=== PATIENT | male | born 1935 | race Caucasian/White ===

== ENCOUNTER 2019-05-10 22:34 | Inpatient (IN) | payer MEDICARE, OTHER ==
[2019-05-10] MEDS ORDERED: Ketamine 50 MG/ML (10ML VIAL) ONE (22:42)
[2019-05-10] MEDS ORDERED: Fentanyl 100 MCG/2 ML VIAL ONE (22:42)
[2019-05-10] MEDS ORDERED: Rocuronium Bromide 10 MG/ML (10ML VIAL) ONE (22:42)
[2019-05-10 23:03] LABS: Hemoglobin 13.4 g/dL (14.0-18.0); Mean Corpuscular HGB CONC 30.8 g/dL (32.0-36.0); Mean Corpuscular Hemoglobin 29.7 pg (27.0-31.0); Mean Corpuscular Volume 96.4 fL (78.0-98.0); Mean Platelet Volume 8.7 fL (7.4-10.4); Platelet Count 333 thou/uL (130-400); RBC Distribution Width 16.2 % (11.5-14.5); Red Blood Cell (RBC) Count 4.53 mill/uL (4.70-6.10); White Blood Cell (WBC) Count 14.8 thou/uL (4.8-10.8)
[2019-05-10] MEDS ORDERED: Norepinephrine 8 MG/0.9% NS 250 ML ONE (23:06)
--- NOTE | 2019-05-10 23:19 | RAD ---
RADIOGRAPH CHEST 1 VIEW: DATE: 05/10/2019 TIME: 11:02 PM HISTORY: 83-year-old male with respiratory distress COMPARISON: 11/04/2010 FINDINGS: There is a new finding of severe alveolar infiltrates throughout the bilateral mid and lower lung zon es. Lung apices are relatively spared. New endotracheal tube distal tip at mid thoracic trachea. New right-sided PICC. Again noted is the left subclavian pacemaker. Spinal cord dorsal column stimula tor leads at lower T-spine. IMPRESSION: Severe bilateral alveolar infiltrates, probably representing severe bilateral pneumonia, less likely to represent pulmonary edema
[2019-05-10 23:21] LABS: Bilirubin Negative (Negative); Blood, Urine Trace (Negative); Clarity Clear (Clear); Glucose, Urine (Dipstick) Normal (Negative); Leukocyte Negative Leu/uL (Negative); Nitrite Negative (Negative); Protein, Urine (Dipstick) 200 mg/dL (Neg-Trace); Squamous Epithelial None Seen HPF (0-3); Urobilinogen Normal mg/dL (Less than 2)
[2019-05-10 23:22] LABS: Bacteria/HPF Rare-Few HPF (None Seen)
[2019-05-10] MEDS ORDERED: fentaNYL Citrate/PF 2,000 MCG in Sodium Chloride 0.9% 60 ML IV SCH (23:24)
[2019-05-10 23:27] LABS: ALT (SGPT) 7 U/L (8-55); AST (SGOT) 21 U/L (5-34); Alkaline Phosphatase 194 U/L (40-110); Anion Gap 22 mmol/L (10-20); BUN (Urea Nitrogen) 8 mg/dL (8.4-25.7); Bilirubin, Total 0.8 mg/dL (0.2-1.2); CK (CPK) 42 U/L (30-200); Calc. Creatinine Clearance 0 mL/min (70-130); Calcium 9.3 mg/dL (7.8-10.44); Carbon Dioxide 19 mmol/L (23-31); Chloride 107 mmol/L (98-107); Estimated GFR-MDRD 90; Globulin 4.1 g/dL (2.4-3.5); Glucose 119 mg/dL (83-110); Potassium 3.6 mmol/L (3.5-5.1); Protein, Total 7.1 g/dL (5.8-8.1); Sodium 144 mmol/L (136-145)
[2019-05-10 23:37] LABS: Band 16 % (5-11); Lymphocytes 14 % (21-51); MDiff Complete? YES; Neutrophil 70 % (42-75)
[2019-05-11] MEDS ORDERED: Aztreonam 2 GM in Sodium Chloride 0.9% 100 ML IVPB SCH (00:15)
[2019-05-11] MEDS ORDERED: Cefepime 2 GM VIAL ONE (00:20)
[2019-05-11] MEDS ORDERED: Norepinephrine 8 MG/0.9% NS 250 ML IVPB PRN (00:25)
[2019-05-11] MEDS ORDERED: CCU Electrolyte Replacement 1 EACH IVPB ONE (00:25)
[2019-05-11] MEDS ORDERED: Acetaminophen 325 MG Suppository PR PRN (00:25)
[2019-05-11] MEDS ORDERED: Acetaminophen 650 MG Suppository ONE (00:30)
[2019-05-11] MEDS ORDERED: Ventilator Sedation Protocol 1 EACH FS SCH (00:30)
[2019-05-11] MEDS ORDERED: Fentanyl BOLUS 250 ML IVPB PRN (00:31)
[2019-05-11] MEDS ORDERED: DISCONTINUE PREVIOUS NARCOTIC PAIN MEDICATIONS AND BENZODIAZEPINES FS SCH (00:31)
[2019-05-11] MEDS ORDERED: Morphine 2 MG/ML SYRINGE SLOW IVP PRN (00:31)
[2019-05-11] MEDS ORDERED: Propofol BOLUS 1,000 MG/100 ML VIAL IV PRN (00:31)
[2019-05-11] MEDS ORDERED: Propofol 1,000 MG/100 ML VIAL IV PRN (00:31)
[2019-05-11] MEDS ORDERED: Magnesium 2 GM/50 ML 2 GM in Premix Bag 1 BAG IVPB PRN (00:34)
[2019-05-11] MEDS ORDERED: Potassium Chloride 40 MEQ in Sodium Chloride 0.9% 250 ML 250 ML IVPB PRN (00:34)
[2019-05-11] MEDS ORDERED: Potassium Phosphate 15 MMOL in Sodium Chloride 0.9% 250 ML 250 ML IV PRN (00:34)
[2019-05-11] MEDS ORDERED: Magnesium Oxide 400 MG TAB PO PRN ×2 (00:34)
[2019-05-11] MEDS ORDERED: Potassium Chloride 20 MEQ TAB PO PRN (00:34)
[2019-05-11] MEDS ORDERED: PHOS-NAK 1 PKT PACK PO PRN ×2 (00:34)
[2019-05-11] MEDS ORDERED: Potassium Phosphate 12 MMOL in Sodium Chloride 0.9% 250 ML 250 ML IV PRN (00:34)
[2019-05-11] MEDS ORDERED: Potassium Chloride 40 MEQ in Premix Bag 1 BAG IVPB PRN (00:34)
[2019-05-11] MEDS ORDERED: CCU ELECTROLYTE REPLACEMENT PROTOCOL FS PRN (00:34)
[2019-05-11] MEDS ORDERED: Potassium Phosphate 9 MMOL in Sodium Chloride 0.9% 100 ML IVPB PRN (00:34)
[2019-05-11] MEDS ORDERED: Azithromycin 500 MG in Sodium Chloride 0.9% 250 ML 250 ML IVPB SCH (01:00)
--- NOTE | 2019-05-11 01:28 | HP ---
CHIEF COMPLAINT: Shortness of breath. HISTORY OF PRESENT ILLNESS: Mr. Sheridan is an 83-year-old male with unconfirmed past medical history of atrial fibrillation, cardiac pacemaker, Enterococcus infection, hypertension, was brought from a nursing facility to the emergency room with shortness of breath. The patient was hypoxic as per ER physician, need to be intubated. According to the ER physician, the patient initially had frothy secretions coming from the ET tube. After intubation, the patient's blood pressure dropped. Laboratory work, the patient has an elevated WBC count of 14.8. BNP is elevated at 339. Troponin is 0.02. Chest x-ray showed severe bilateral alveolar infiltrates. Differential diagnosis includes bilateral pneumonia and also possibly pulmonary edema. Lactic acid is elevated at 5.4. Because of the presentation, chest x-ray findings, elevated WBC count, elevated lactic acid, sepsis alert, and the patient had septic workup including cultures, viral panel, and COVID testing done. Currently, the patient is intubated and sedated. The patient is being admitted to the intensive care unit for further management. PAST MEDICAL HISTORY: Unconfirmed; 1. Cardiac pacemaker. 2. Atrial fibrillation. 3. Enterococcus infection. 4. Hypertension. PAST SURGICAL HISTORY: Unknown at this time. FAMILY HISTORY: Unknown at this time. The patient is intubated and sedated. ALLERGIES: CIPRO, DIVALPROEX, LEVOFLOXACIN, NORTRIPTYLINE, PENICILLIN, SULFA, TAMSULOSIN, TETRACYCLINE, VANCOMYCIN, AND VALPROIC ACID. REVIEW OF SYSTEMS: Unable to obtain. The patient is currently intubated and sedated. PHYSICAL EXAMINATION: GENERAL: The patient is intubated, sedated. VITAL SIGNS: Blood pressure is 126/46, pulse is 60, respiratory rate is 20, oxygen saturation is 94%. The patient was started on Levophed because of low blood pressure. HEAD AND NECK: Normocephalic and atraumatic. NECK: Supple. CHEST: Coarse bilateral breath sounds. HEART: Distant heart sounds. ABDOMEN: Soft. Bowel sounds present. NEUROLOGIC: Intubated and sedated, unable to assess. PSYCH: Unable to assess. EXTREMITIES: No clubbing, no cyanosis. LABORATORY DATA: As mentioned above in the history of present illness. ASSESSMENT: 1. Acute respiratory failure, hypoxic. 2. Sepsis/septic shock. 3. Pneumonia? 4. Suspected COVID infection. 5. Pulmonary edema, also in the differential diagnosis given presentation with frothy secretions during intubation. 6. Cardiac pacemaker. 7. History of atrial fibrillation. PLAN: 1. Admit to intensive care unit. 2. Continue full ventilator support. 3. Keep n.p.o. 4. The patient was started on Levophed for low blood pressure. We will continue for now. 5. Continue with empiric IV antibiotics for now. 6. Consult Pulmonary/washing machine mechanic for critical care management and ventilator management. 7. We will need cardiac workup including serial cardiac enzymes, troponin, and 2D echo. 8. Reconcile home medications. 9. DVT prophylaxis as appropriate. 10. Expected length of stay, 2 midnights or more. Job ID: [id number]
[2019-05-11 02:02] LABS: Lactic Acid 2.8 mmol/L (0.5-2.2)
[2019-05-11 02:09] LABS: Troponin I 0.054 ng/mL (< 0.028)
[2019-05-11] MEDS ORDERED: FLU VACC TS2019-20(65YR UP)/PF 180 MCG/0.5 ML SYRINGE IM ONE ×2 (03:00→09:00)
[2019-05-11 07:51] LABS: Base Excess (BEa) -1.9 mEq/L (-2.0 to +3.0); CO2 Tension 39.7 mmHg (35.0-45.0); Calcium, Ionized 1.22 mmol/L (1.12-1.30); Carboxyhemoglobin (COHb) 0.7 gm% (0.0-3.0); Hemoglobin (Hb) 12.6 g/dL (14.0-18.0); O2 Tension (PaO2), arterial 69.1 mmHg (> 60.0); Potassium - ABG Lab 3.33 mmol/L (3.70-5.30); pH, Arterial 7.38 (7.35-7.45)
[2019-05-11 07:54] LABS: ALV-art Gradient 594.275 (0-20); Puncture Site RBA
[2019-05-11] MEDS: Famotidine/PF 20 mg/2ml Vial SLOW IVP SCH ×2 (08:20→21:52)
[2019-05-11 10:19] LABS: Hemoglobin 11.9 g/dL (14.0-18.0); Mean Corpuscular HGB CONC 30.9 g/dL (32.0-36.0); Mean Corpuscular Hemoglobin 29.5 pg (27.0-31.0); Mean Corpuscular Volume 95.4 fL (78.0-98.0); Mean Platelet Volume 8.6 fL (7.4-10.4); Platelet Count 265 thou/uL (130-400); RBC Distribution Width 16.2 % (11.5-14.5); Red Blood Cell (RBC) Count 4.04 mill/uL (4.70-6.10); White Blood Cell (WBC) Count 18.3 thou/uL (4.8-10.8)
[2019-05-11 10:33] LABS: Lactic Acid 2.6 mmol/L (0.5-2.2)
[2019-05-11 10:38] LABS: ALT (SGPT) Less than 7 U/L (8-55); AST (SGOT) 20 U/L (5-34); Albumin 2.5 g/dL (3.4-4.8); Alkaline Phosphatase 154 U/L (40-110); Anion Gap 17 mmol/L (10-20); BUN (Urea Nitrogen) 12 mg/dL (8.4-25.7); Bilirubin, Total 0.9 mg/dL (0.2-1.2); Calc. Creatinine Clearance 80 mL/min (70-130); Calcium 8.6 mg/dL (7.8-10.44); Carbon Dioxide 20 mmol/L (23-31); Chloride 110 mmol/L (98-107); Estimated GFR-MDRD 71; Globulin 3.4 g/dL (2.4-3.5); Glucose 81 mg/dL (83-110); Potassium 3.4 mmol/L (3.5-5.1); Protein, Total 5.9 g/dL (5.8-8.1); Sodium 144 mmol/L (136-145)
[2019-05-11 11:01] LABS: Band 52 % (5-11); Burr Cells SLIGHT = 2-5 cells (100X) (0-1/hpf); CKMB 2.7 ng/mL (0-6.6); Eosinophils 1 % (0-10); Lymphocytes 6 % (21-51); MDiff Complete? YES; Metamyelocyte 1 % (0-0); Monocytes 3 % (0-10); Neutrophil 37 % (42-75); Platelet Morphology Comment Appears Adequate; Polychromasia SLIGHT = 2-3 cells (100X) (0-2/hpf)
[2019-05-11] MEDS ORDERED: Cefepime 2 GM in Sodium Chloride 0.9% 100 ML IVPB SCH ×2 (12:00→21:00)
[2019-05-11] MEDS: Lorazepam 2 MG/ML VIAL SLOW IVP PRN ×4 (12:52→18:11)
[2019-05-11] MEDS ORDERED: Potassium Chloride 20 MEQ TAB PO SCH (13:15)
--- NOTE | 2019-05-11 13:15 | PDOC.EVN ---
Event Note - Event Note Event Note: Patient admitted for bilateral pneumonia. Rule out COVID. Per Dr. Ward, unclear whether patietn supposed to be full code, may be DNR. He spoke to family, they will keep him intubated for now, consider extubation tomorrow. Patient has had chronic pain for years which has been difficult to manage. Has melanoma, discitis, septic emboli, aortic valve vegetation. No history of IV drug use. Im unable to go in since no N95 masks available. Vitals: stable Gen: patient intubated, currently in no distress. He is sedated CV: sinus rhythm Per nurse, patient has bilateral crackles - He does have some LE edema on exam This is an 83 year old male who presented with shortness of breath requiring intubation #ARDS - per pulmonary #History of septic emboli #History of discitis #History of aortic valve vegetation - on cefepime, azithromycin. Patient has allergy to vanc. LInezolid and levaquin drug interaction with current meds - will place ID consult due to history of endocarditis - ECHO - COVID testing pending - continue ventilator support Lactic acidosis - continue pressor support - avoiding fluids due to ARDS Hypokalemia - potassium 3.4, replaced
--- NOTE | 2019-05-11 13:26 | CON ---
DATE OF CONSULTATION: 05/11/2019 HISTORY OF PRESENT ILLNESS: Mr. Sheridan is an 83-year-old male. I talked with his physician, Dr. Ordaz. He has chronic pain. Apparently, he has been hypersomnolent at home for several days and they have been adjusting pain medications trying to lead to an improvement in his mental status. He is a do not resuscitate patient. It is pre-existing per my discussion with her, the daughter, Autumn, is [id number] with [facility]. The is [id number], but the has fairly advanced dementia apparently. Mr. Sheridan presented with respiratory distress and was subsequently intubated. He has diffuse infiltrates on chest radiograph. PAST MEDICAL HISTORY: Remarkable for: 1. Pacemaker with a right ventricular lead placed recently. 2. History of claudication. 3. History of coronary artery disease. 4. History of aortic valve vegetation, septic emboli 2 weeks ago to his right upper lobe, and what is felt to be a diskitis and possible epidural abscess, being treated with outpatient IV antibiotics. 5. History of melanoma. 6. History of immune-mediated polyneuropathy, receiving IVIG. This was recently discontinued. 7. History of cardiomyopathy with an ejection fraction of 40%. 8. History of cognitive impairment. All this history is obtained from his primary physician, Dr. Ordaz. ALLERGIES: REPORTED TO DIVALPROEX, CIPRO, LEVAQUIN, NORTRIPTYLINE, PENICILLIN, SULFA, HYTRIN, TETRACYCLINE, VANCOMYCIN, AND VALPROATE. REVIEW OF SYSTEMS: Not obtainable. PHYSICAL EXAMINATION: GENERAL: He is intubated. He is in no distress. VITAL SIGNS: He is afebrile. Respiratory rates in the 20s, oximetry is 100%, heart rate 60, blood pressure 134/42. LUNGS: Remarkable for distant breath sounds. HEART: Regular rhythm. ABDOMEN: Soft. EXTREMITIES: With reported edema. LABORATORY AND DIAGNOSTIC DATA: White count 18.3, hemoglobin 11.9, and platelets 265. Sodium 144, potassium 3.4, chloride 110, bicarb 20, BUN 12, creatinine 1.0 , and glucose 81. PH 7.38, CO2 of 39, pO2 of 69. Chest x-ray shows diffuse infiltrates. IMPRESSION: Chemical pneumonitis, acute respiratory distress syndrome, most likely secondary to aspiration. COVID will be ruled out. We will follow along with other physicians caring for Mr. Sheridan. CRITICAL CARE TIME: 30 minutes. Job ID: [id number] MTDD
[2019-05-12 05:31] LABS: ALT (SGPT) 7 U/L (8-55); AST (SGOT) 23 U/L (5-34); Albumin 2.2 g/dL (3.4-4.8); Alkaline Phosphatase 148 U/L (40-110); Anion Gap 17 mmol/L (10-20); BUN (Urea Nitrogen) 19 mg/dL (8.4-25.7); Bilirubin, Total 0.8 mg/dL (0.2-1.2); Calc. Creatinine Clearance 47 mL/min (70-130); Calcium 8.6 mg/dL (7.8-10.44); Carbon Dioxide 20 mmol/L (23-31); Chloride 112 mmol/L (98-107); Estimated GFR-MDRD 39; Globulin 3.2 g/dL (2.4-3.5); Glucose 96 mg/dL (83-110); Potassium 4.3 mmol/L (3.5-5.1); Protein, Total 5.4 g/dL (5.8-8.1); Sodium 145 mmol/L (136-145)
[2019-05-12 05:51] LABS: Band 41 % (5-11); Hemoglobin 10.2 g/dL (14.0-18.0); Lymphocytes 3 % (21-51); MDiff Complete? YES; Mean Corpuscular Hemoglobin 30.6 pg (27.0-31.0); Mean Corpuscular Volume 95.8 fL (78.0-98.0); Mean Platelet Volume 9.7 fL (7.4-10.4); Monocytes 4 % (0-10); Neutrophil 52 % (42-75); Platelet Count 212 thou/uL (130-400); RBC Distribution Width 16.9 % (11.5-14.5); Red Blood Cell (RBC) Count 3.34 mill/uL (4.70-6.10)
[2019-05-12] MEDS ORDERED: Morphine 2 MG/ML SYRINGE SLOW IVP PRN (07:48)
[2019-05-12] MEDS ORDERED: Morphine 4 MG/ML VIAL IV PRN (07:52)
--- NOTE | 2019-05-12 07:56 | PRG ---
DATE OF SERVICE: 05/12/2019 SUBJECTIVE: Mr. Sheridan's COVID status was proven to be negative. I had a long discussion with his daughter. They have come to petroleum inspector with the fact that this is likely a terminal event. He has just spent almost a month in the hospital in [place] and had not recovered from that and was still receiving IV antibiotics for paraspinous abscess and probable endocarditis. OBJECTIVE: VITAL SIGNS: Currently, his blood pressure 94/37, heart rate 60, and respiratory rate is 20. LUNGS: Clear anteriorly. Copious secretions have been suctioned out of him. HEART: Regular rhythm. ABDOMEN: Soft. EXTREMITIES: Still with edema. LABORATORY DATA: White count 16, hemoglobin 10.2, and platelets 212,000. Sodium 145, potassium 4.3, chloride 112, bicarb 20, BUN 19, and creatinine 1.7 up from 1.0. IMPRESSION: Aspiration pneumonia with acute respiratory distress syndrome. PLAN: Withdrawal support. Comfort care per family's request. Critical care time 35 min. Job ID: [id number] MTDD
--- NOTE | 2019-05-12 08:03 | RAD ---
CHEST 1 VIEW: INDICATION: History of CCU examination on ventilator. COMPARISON: Prior exam dated 05/10/2019. FINDINGS: Moderate cardiomegaly with pulmonary vascular congestion persists. Bilateral airspace disease appear s slightly worsened. Small bilateral pleural effusions persist. Multilead AICD, dorsal column stimu lator, ET tube, gastric catheter, and right-sided PICC line are stable-appearing. No pneumothorax is evident. IMPRESSION: 1. Worsening bilateral airspace disease may reflect worsening edema or pneumonia. 2. Cardiomegaly, pulmonary vascular congestion, and pleural effusions persist. The degree of size o f the pleural effusions is slightly more pronounced than on the prior exam. 3. Tubes and lines are stable. 4. No pneumothorax. POS: BH
[2019-05-12] MEDS ORDERED: Azithromycin 500 MG in Sodium Chloride 0.9% 250 ML 250 ML IVPB SCH (09:00)
--- NOTE | 2019-05-12 12:41 | PDOC.HOSPP ---
- Subjective Encounter Date: 05/12/19 Encounter Time: 11:00 Subjective: Paper Reclaiming Machine Operator spoke to family, patient terminally extubated today. Appears tachypneic - Objective Vital Signs & Weight: Vital Signs (12 hours) Temp Pulse Resp BP Pulse Ox 05/12/19 12:00 97.9 F 88 L 05/12/19 10:26 60 91/36 L 05/12/19 10:00 21 H 05/12/19 08:00 20 05/12/19 07:54 62 93/36 L 05/12/19 07:28 100 05/12/19 06:00 20 05/12/19 04:00 97.6 F 20 05/12/19 02:58 64 05/12/19 02:00 20 05/12/19 00:44 65 Weight Admit Weight 221 lb 12.56 oz Weight 223 lb 12.307 oz Most Recent Monitor Data Heart Rate from ECG 62 NIBP 105/42 NIBP BP-Mean 63 Respiration from ECG 18 SpO2 87 I&O: 05/11/19 05/12/19 05/13/19 06:59 06:59 06:59 Intake Total 435.7 316 68 Output Total 140 150 15 Balance 295.7 166 53 Result Diagrams: 05/12/19 03:50 05/12/19 03:50 Hospitalist ROS - Medication Medications: Active Medications Generic Name Dose Route Start Last Admin Trade Name Freq PRN Reason Stop Dose Admin Potassium Chloride 40 meq 05/11/19 00:34 05/11/19 13:26 Klor-Con PER TUBE 40 meq ASDIR PRN Administration FOR SERUM K+ 2.5-3.5 - Exam General - other findings: not responsive, tachypneic Eye: anicteric sclera ENT: normocephalic atraumatic, no oropharyngeal lesions Neck: no JVD Heart: RRR, no murmur, no gallops, no rubs Respiratory - other findings: bilateral rhonchi and rales Gastrointestinal: soft, non-tender, non-distended Extremities: 2+ LE edema Skin: normal turgor, no lesions, no rashes Neurological - other findings: not responsive Hosp A/P - Plan Chest Xray 05/11: cardiomegaly This is an 83 year old male who presented with shortness of breath requiring intubation #ARDS - per pulmonary #History of septic emboli #History of discitis #History of aortic valve vegetation #Acute hypoxic respiratory failure secondary to pulmonary edema and pneumonia - Type II NSTEMI - on cefepime, azithromycin. Patient has allergy to vanc. LInezolid and levaquin drug interaction with current meds. WBC downtrending to 16 -COVID testing negative -troponin peaked at 0.6, ECHO ordered -terminally extubated. CXR shows cardiomegaly and edema. When off pressors, can administer IV lasix JAHAIRA - creatinine up to 1.7 - will administer one dose lasix Lactic acidosis - downtrending Anemia - Hb 10.2, stable will monitor Hypokalemia - potassium 3.4, replaced
[2019-05-12] MEDS ORDERED: Furosemide 20 MG/2 ML VIAL SLOW IVP SCH (12:45)
[2019-05-13 11:24] LABS: Mean Corpuscular HGB CONC 31.1 g/dL (32.0-36.0); Mean Corpuscular Hemoglobin 29.9 pg (27.0-31.0); Mean Corpuscular Volume 96.1 fL (78.0-98.0); Mean Platelet Volume 9.1 fL (7.4-10.4); Platelet Count 208 thou/uL (130-400); Red Blood Cell (RBC) Count 3.68 mill/uL (4.70-6.10); White Blood Cell (WBC) Count 16.4 thou/uL (4.8-10.8)
[2019-05-13 11:35] LABS: Anion Gap 22 mmol/L (10-20); BUN (Urea Nitrogen) 31 mg/dL (8.4-25.7); Calc. Creatinine Clearance 30 mL/min (70-130); Calcium 9.1 mg/dL (7.8-10.44); Carbon Dioxide 13 mmol/L (23-31); Chloride 113 mmol/L (98-107); Estimated GFR-MDRD 23; Glucose 115 mg/dL (83-110); Potassium 4.1 mmol/L (3.5-5.1); Sodium 144 mmol/L (136-145)
[2019-05-13] MEDS ORDERED: Furosemide 20 MG/2 ML VIAL SLOW IVP SCH (13:15)
[2019-05-13] MEDS ORDERED: Lorazepam 2 MG/ML VIAL SLOW IVP PRN (14:33)
--- NOTE | 2019-05-13 14:44 | PDOC.PALCO ---
Palliative Care Consult - Consult Details Requesting Physician: Dr Swanson Reason for Consult: goals of care, symptom management, family support Family Members Present: Via phone with daughter Asuncion and patient - Pertinent HPI 83 year old male with pronounced cardiovascular history who is a resident at a local detention. He had an increase of shortness of breath and was transported to our emergency room for evaluation. Intubated with frothy secretions and became hypotensive. He was admitted to CCU for pulmonary edema verses pneumonia. Family states he did not want to be intubated, thus he was compassionately extubated and palliative care consulted. Patient has been followed by the Palliative Care team at [facility] for chronic pain. - Pertinent PMH Atrial Fib, Enterococcus infection, hypertension, - Social History Smoking Status: Unknown if ever smoked Alcohol Use: none Drug Use History: none Living Situation: , detention resident - Medications MAR Reviewed: Yes - Allergies Allergies/Adverse Reactions: Allergies Allergy/AdvReac Type Severity Reaction Status Date / Time ciprofloxacin [From Cipro] Allergy Verified 05/10/19 23:24 divalproex sodium Allergy Verified 05/10/19 23:24 [From Depakote] levofloxacin Allergy Verified 05/10/19 23:24 nortriptyline Allergy Verified 05/11/19 02:01 Penicillins Allergy Verified 05/10/19 23:24 pregabalin [From Lyrica] Allergy Verified 05/10/19 23:24 Sulfa (Sulfonamide Allergy Verified 05/10/19 23:24 Antibiotics) tamsulosin Allergy Verified 05/10/19 23:24 tetracycline Allergy Verified 05/10/19 23:24 valproic acid Allergy Verified 05/10/19 23:24 vancomycin Allergy Verified 05/10/19 23:24 - Subjective Non responsive, comfortable. Shallow, mildly labored respirations. - ROS Non Response: due to mental status - Objective Vital Signs: Vital Signs - Most Recent Temp Pulse Resp BP Pulse Ox 98.1 F 65 20 120/55 L 90 L 05/13/19 11:02 05/13/19 11:02 05/13/19 11:02 05/13/19 11:02 05/13/19 11:02 Palliative Performance Scale: 10 - Physical Exam Constitutional: cachectic, encephalitic, ill appearing Deviation from normal: Dry mucous membranes HEENT: sclera anicteric Respiratory: accessory muscle use, diminished lung sound Deviation from normal: irregular respirations Cardiovascular: diminished peripheral pulses Gastrointestinal: no distention, incontinent Genitourinary: carrillo catheter Deviation from normal: scant urine output Musculoskeletal: edema present Deviation from normal: non responsive Skin: no rash, fragile Deviation from normal: Mottling to feet bilaterally Deviation from normal: encephalopathic - Problem List (1) Palliative care encounter Code(s): Z51.5 - ENCOUNTER FOR PALLIATIVE CARE Current Visit: Yes Status: Acute (2) Respiratory failure Code(s): J96.90 - RESPIRATORY FAILURE, UNSP, UNSP W HYPOXIA OR HYPERCAPNIA Current Visit: Yes Status: Acute (3) Pulmonary edema Code(s): J81.1 - CHRONIC PULMONARY EDEMA Current Visit: Yes Status: Acute (4) Sepsis Code(s): A41.9 - SEPSIS, UNSPECIFIED ORGANISM Current Visit: Yes Status: Acute - Plan/Recommendations Plan: Spoke with daughter and patient . Discussed comfort measures, family states they do not want Mr Sheridan to suffer. Face time at family request to say "good by " to patient. They are not able to come to the hospital as several family members are immuno compromised or have respiratory considerations. Emotional support and therapeutic listening. Ordered Morphine and Ativan Family will consider GIP in the morning if indicated. Spiritual care seeing patient Discussed with Dr Swanson [[id number]] minutes spent on this encounter with >50% of the time in counseling and coordination of care. Thank you for this very appropriate consult.
--- NOTE | 2019-05-13 15:30 | PDOC.HOSPP ---
- Subjective Encounter Date: 05/13/19 Encounter Time: 11:30 Subjective: The patient was seen laying in bed. He has labored breathing, not responsive. Had long discussion with family. Patient had enterococcal infection and was on ampicilin and erythromycin. Had two weeks left of IV antibiotics but patient aspirated and ended up here. THey do not want anything that would prolong his life unless it would help his situation. THey are okay with medications for comfort. - Objective Vital Signs & Weight: Vital Signs (12 hours) Temp Pulse Resp BP Pulse Ox 05/13/19 11:02 98.1 F 65 20 120/55 L 90 L 05/13/19 08:00 90 L 05/13/19 07:34 98.9 F 64 17 127/53 L 91 L Weight Admit Weight 221 lb 12.56 oz Weight 223 lb 12.307 oz Most Recent Monitor Data Heart Rate from ECG 65 NIBP 107/40 NIBP BP-Mean 62 Respiration from ECG 19 SpO2 91 I&O: 05/12/19 05/13/19 05/14/19 06:59 06:59 06:59 Intake Total 316 68 Output Total 150 30 Balance 166 38 Result Diagrams: 05/13/19 10:43 05/13/19 10:43 Hospitalist ROS - Review of Systems ROS unobtainable: due to mental status Eyes: denies: pain, vision change - Exam General - other findings: awake, tachpneic Eye: PERRL, anicteric sclera ENT: normocephalic atraumatic, no oropharyngeal lesions Neck: no JVD Heart: RRR, no murmur, no gallops, no rubs Respiratory - other findings: bilateral rales Gastrointestinal: soft, non-tender, non-distended Extremities: no cyanosis, no clubbing, 2+ LE edema Hosp A/P - Plan Chest Xray 05/11: cardiomegaly This is an 83 year old male who presented with shortness of breath requiring intubation #ARDS #History of septic emboli #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 PT with severe ARDS per pulmonary. COVID testing negative. Terminally extubated since patient was DNR/DNI and very poor prognosis - troponin peaked at 0.6. ECHO cancelled - family has agreed to comfort measures, no antibiotics. Okay with lasix prn for edema - palliative care consulted for symptom management - anticipate imminent
[2019-05-14 07:49] VITALS: BP 149/65; TEMP 98.9
--- NOTE | 2019-05-14 08:54 | PDOC.PALPN ---
Palliative Progress Note - Subjective Labored respirations, non responsive. Continues with measures to promote comfort at end of life. - Objective Vital Signs: Vital Signs - Most Recent Temp Pulse Resp BP Pulse Ox 98.9 F 62 18 149/65 H 82 L 05/14/19 07:45 05/14/19 07:45 05/14/19 07:45 05/14/19 07:45 05/14/19 08:00 - Physical Exam Constitutional: encephalitic, ill appearing Deviation from normal: dry oral mucous membranes HEENT: moist MMs, sclera anicteric Respiratory: accessory muscle use, labored respirations, tachypnea Cardiovascular: RRR Gastrointestinal: soft, non-tender Genitourinary: carrillo catheter Musculoskeletal: edema present, diffuse muscle atrophy Deviation from normal: minimal response to stimulation Deviation from normal: mottling to lower extremities - Assessment (1) Palliative care encounter Code(s): Z51.5 - ENCOUNTER FOR PALLIATIVE CARE Current Visit: Yes Status: Acute (2) Respiratory failure Code(s): J96.90 - RESPIRATORY FAILURE, UNSP, UNSP W HYPOXIA OR HYPERCAPNIA Current Visit: Yes Status: Acute (3) Pulmonary edema Code(s): J81.1 - CHRONIC PULMONARY EDEMA Current Visit: Yes Status: Acute (4) Sepsis Code(s): A41.9 - SEPSIS, UNSPECIFIED ORGANISM Current Visit: Yes Status: Acute - Plan Plan: Comfort measures, communicated with patient daughter. Will follow up and determine if they are deciding to seek inpatient hospice. Morphine for labored respirations 2mg Q 1hr Levsin to mitigate secretions Tylenol NC for any fever Communicated with Dr Swanson [[id number]] minutes spent on this encounter with >50% of the time in counseling and coordination of care. - ROS Non Response: due to mental status
[2019-05-14] MEDS: Morphine 2 MG/ML SYRINGE SLOW IVP PRN ×5 (09:19→17:55)
--- NOTE | 2019-05-14 12:29 | PDOC.HOSPP ---
- Subjective Encounter Date: 05/14/19 Encounter Time: 09:00 Subjective: Pat not responsive, labored breathing. - Objective Vital Signs & Weight: Vital Signs (12 hours) Temp Pulse Resp BP Pulse Ox 05/14/19 08:00 82 L 05/14/19 07:45 98.9 F 62 18 149/65 H 32 L Weight Admit Weight 221 lb 12.56 oz Weight 223 lb 12.307 oz Most Recent Monitor Data Heart Rate from ECG 65 NIBP 107/40 NIBP BP-Mean 62 Respiration from ECG 19 SpO2 91 I&O: 05/13/19 05/14/19 05/15/19 06:59 06:59 06:59 Intake Total 68 Output Total 30 300 Balance 38 -300 Result Diagrams: 05/13/19 10:43 05/13/19 10:43 Hospitalist ROS - Review of Systems ROS unobtainable: due to mental status - Medication Medications: Active Medications Generic Name Dose Route Start Last Admin Trade Name Freq PRN Reason Stop Dose Admin Hyoscyamine Sulfate 0.125 mg 05/14/19 08:48 05/14/19 11:36 Levsin PO 0.125 mg Q4H PRN Administration Secretions Lorazepam 1 mg 05/13/19 14:33 05/14/19 01:52 Ativan SLOW IVP 1 mg Q4H PRN Administration Anxiety/Agitation Morphine Sulfate 2 mg 05/14/19 08:46 05/14/19 11:36 Morphine SLOW IVP 2 mg Q1H PRN Administration Dyspnea/Wheezing/SOB - Exam General - other findings: lethargic ENT: normocephalic atraumatic, no oropharyngeal lesions Neck: no JVD Heart: RRR, no murmur, no gallops, no rubs Respiratory: CTAB, no wheezes Respiratory - other findings: bilateral rales Gastrointestinal: soft, non-tender, non-distended Extremities: 2+ LE edema Skin: normal turgor, no lesions, no rashes Hosp A/P - Plan Chest Xray 05/11: cardiomegaly This is an 83 year old male who presented with shortness of breath requiring intubation #ARDS #History of septic emboli #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 PT with severe ARDS per pulmonary. COVID testing negative. Terminally extubated since patient was DNR/DNI and very poor prognosis - troponin peaked at 0.6. ECHO cancelled - continue comfort care measures - palliative on board, may add prn morphine
--- NOTE | 2019-05-14 14:24 | EKG ---
Test Reason : Blood Pressure : / mmHG Vent. Rate : 060 BPM Atrial Rate : 037 BPM P-R Int : 000 ms QRS Dur : 128 ms QT Int : 582 ms P-R-T Axes : 000 052 076 degrees QTc Int : 582 ms Ventricular-paced rhythm Abnormal ECG Confirmed by NIKOLAI RODRÍGUEZ DO ([id number]), loan expeditor RYAN YO ([id number] on 05/14/2019 2:23:26 PM Referred By: Confirmed By:NIKOLAI RODRÍGUEZ DO
[2019-05-14 15:36] VITALS: BMI 27.2
--- NOTE | 2019-05-14 17:08 | PDOC.PALFU ---
Palliative Care Follow-up Note Family of Mr Sheridan has requested hospice. When asked of a preference they did not have one. [facility] and Dr Swanson notified
--- NOTE | 2019-05-15 14:23 | DIS ---
DATE OF ADMISSION: 05/10/2019 DATE OF EXPIRATION: 05/14/2019. DISCHARGE DIAGNOSES: 1. Acute hypoxic respiratory failure secondary to pulmonary edema versus pneumonia. 2. Acute respiratory distress syndrome. 3. Acute kidney injury. 4. Hypokalemia. 5. Anemia. 6. History of septic emboli. 7. History of aortic valve endocarditis and spinal abscess. 8. Type-2 NSTEMI. 9. Possible septic shock secondary to pneumonia. CONSULTATIONS: 1. Pulmonary Critical Care, Dr. Harish Ward. 2. Palliative Care with Jessika Malagon. PROCEDURES: None. BRIEF HISTORY OF PRESENT ILLNESS: This is an 83-year-old male with a past medical history of Enterococcus infection, atrial fibrillation, aortic valve endocarditis, spinal abscess, who presented to the emergency room with shortness of breath. Per family members, the patient was receiving ampicillin and erythromycin for spinal abscess and endocarditis. The patient was receiving IV antibiotics at home and had 2 more weeks of IV antibiotics left. While the patient was at home, the patient had aspirated and was brought to the ER. Upon arrival to the ER, the patient needed to be intubated. He had a white blood cell count of 14.8. Chest x-ray showed severe bilateral alveolar infiltrates. Lactic acid was noted to be 5.4. The patient was admitted for COVID rule out. HOSPITAL COURSE: Septic shock secondary to aspiration pneumonia/acute respiratory distress syndrome: The patient was intubated and was treated with empiric antibiotics with IV cefepime and azithromycin. The patient had an allergy to vancomycin, and Levaquin. The patient did have a slight improvement in his white count to 16. He was tested for Coronavirus, which came back negative. His troponins were elevated and peaked at 0.6 which was likely from type II NSTEMI. Chest x-ray showed some cardiomegaly and edema likely consistent with ARDS. The patient was maintained on pressors but developed worsening kidney function with a creatinine up to 2.67. The following day, the family called and stated the patient was a DNR/DNI and they wanted to terminally extubate patient once his COVID test came back negative. He was extubated on 05/12 and was transferred to the floor. His blood pressure eventually improved without pressors and he was diuresed for pulmonary edema with no improvement. Palliative care was consulted. After prolonged discussion with family they agreed to prn diuretics and comfort medications only , but did not want antibiotics or anything that would prolong life if his prognosis was poor. Per pulmonology, patient's chance of recovery from ARDS was unlikely. The patient's mental status continued to decline and his breathing was persistently labored. The patient on 05/13 at 1632 hours. DISCHARGE PHYSICAL EXAMINATION: The patient at 16:32 on May 13. PERTINENT LABORATORY DATA: CBC on 05/12: White count 16.4, hemoglobin 11.0, hematocrit 35.4, platelet count 208. BMP on 05/12: Remarkable for creatinine increased to 2.67. It was 1 on 05/10. LFTs: Remarkable for an elevated alkaline phosphatase of 148. Troponin I: 0.054, 0.060, 0.053. UA: Urine white blood cell 4 to 6, urine protein 200, urine specific gravity 1.039. COVID PCR: Not detected. IMAGING DATA: Chest x-ray on 05/09: Severe bilateral alveolar infiltrates, possibly representing severe bilateral pneumonia, less likely to represent pulmonary edema. Chest x-ray on 05/11: Worsening bilateral airspace disease with worsening edema or pneumonia. Cardiomegaly, pulmonary vascular congestion, and pleural effusions present. DISCHARGE DISPOSITION: The patient was . He was discharged to his home. Job ID: [id number] [facility]
== END 2019-05-14 18:32 | disposition expired | DRG 871 ==
LOC: ERS 22:34 → CCU 22:40 → T4-A 05-12 14:54
PROVIDERS: ADMIT Internal Medicine; ATTEND Internal Medicine
PROC: 0BH17EZ Insertion of Endotracheal Airway into Trachea, Via Natural or Artificial Opening (ICD-10-PCS; principal; 2019-05-11)
PROC: 5A1945Z Respiratory Ventilation, 24-96 Consecutive Hours (ICD-10-PCS; 2019-05-11)
PROC: 3E033XZ Introduction of Vasopressor into Peripheral Vein, Percutaneous Approach (ICD-10-PCS; 2019-05-11)
DX: A41.9 Sepsis, unspecified organism (principal); J96.01 Acute respiratory failure with hypoxia; I21.A1 Myocardial infarction type 2; J69.0 Pneumonitis due to inhalation of food and vomit; R65.21 Severe sepsis with septic shock; N17.9 Acute kidney failure, unspecified; I42.9 Cardiomyopathy, unspecified; E87.2 Acidosis; Z51.5 Encounter for palliative care; Z66 Do not resuscitate; I48.91 Unspecified atrial fibrillation; E87.6 Hypokalemia; D64.9 Anemia, unspecified; I10 Essential (primary) hypertension; G31.84 Mild cognitive impairment of uncertain or unknown etiology; I25.10 Atherosclerotic heart disease of native coronary artery without angina pectoris; G89.29 Other chronic pain; Z95.0 Presence of cardiac pacemaker; Z86.711 Personal history of pulmonary embolism; Z79.01 Long term (current) use of anticoagulants; Z88.6 Allergy status to analgesic agent; Z88.1 Allergy status to other antibiotic agents; Z88.0 Allergy status to penicillin; Z88.2 Allergy status to sulfonamides; Z88.8 Allergy status to other drugs, medicaments and biological substances; Z20.828 Contact with and (suspected) exposure to other viral communicable diseases
CPT/HCPCS: 31500; 36415; 36556; 51702; 71045; 80048; 80053; 81003; 81015; 82550; 82553; 82805; 83605; 83880; 84484; 85007; 85025; 85027; 87040; 87633; 87798; 87804; 93005; 94002; 94003; 96365; 96366; 96368; 96375; 96376; J0456; J0692; J1940; J2060; J2270; J3010; J3490; J7050; S0028; U0001